=== PATIENT | male | born 1945 | race Caucasian/White ===

== ENCOUNTER 2017-10-15 06:21 | Day surgery (SDC) | payer OTHER, BC ==
[2017-10-12 18:48] VITALS: BMI 19.6
[2017-10-15] MEDS ORDERED: PROPOFOL 20 ML ONE ×3 (09:14→10:17)
[2017-10-15] MEDS ORDERED: MIDAZOLAM HCL 2 MG/2 ML SINGLE DOSE VIAL ONE (09:14)
[2017-10-15] MEDS ORDERED: SODIUM CHLORIDE 0.9% P/F 10 ML VIAL IJ ONE ×2 (09:15→10:19)
[2017-10-15] MEDS ORDERED: ceFAZolin SODIUM 1 GM VIAL ONE ×2 (09:15→10:19)
[2017-10-15] MEDS ORDERED: DEXAMETHASONE SOD PHOSPHATE 4 MG/1 ML VIAL ONE ×2 (09:15→10:39)
[2017-10-15] MEDS ORDERED: LIDOCAINE HCL/PF 2% SDV 5ML VIAL ONE (09:15)
--- NOTE | 2017-10-15 09:48 | HP ---
[facility] - Chief Complaint Chief Complaint: left thumb locking History of Present Illness: post traumatic left trigger thumb History Source: Patient Limitations to Obtaining History: No Limitations - Past Medical History Allergies/Adverse Reactions: Allergies Allergy/AdvReac Type Severity Reaction Status Date / Time No Known Drug Allergies Allergy Verified 10/12/17 18:48 - Current Medications Current Medications: Home Medications Medication Instructions Recorded Lecithin, Soy [Lecithin] 1,200 mg PO DAILY 10/12/17 Multivit-Min/FA/Lycopen/Lutein 1 each PO DAILY 10/12/17 [Centrum Silver Men Tablet] Vit B Comp/C/Folic/Iron/Vit E 1 each PO DAILY 10/12/17 [Stress-C with Iron Tablet] [facility]ellite Physical Exam - Physical Examination Vital Signs: Vital Signs Period Temp Pulse Resp BP Sys/Lord Pulse Ox Last 24 Hr 98.1 F 72 18 153/83 96 General Appearance: Well Nourished ENT: Clear Lung: Clear to auscultation Heart: Regular rate & rhythm Breasts: Soft Abdomen: Soft Extremities: No edema Satellite Impression/Plan - Impression/Plan Impression: post traumatic left trigger thumb Operative Procedure: left trigger thumb release Date to be Performed: 10/15/17
[2017-10-15] MEDS ORDERED: BUPIVACAINE HCL/PF 0.5% (5MG/ML) 10 ML VIAL ONE (10:01)
[2017-10-15] MEDS ORDERED: ceFAZolin SODIUM 1 GM VIAL IVPB ONE (10:23)
[2017-10-15] MEDS ORDERED: KETOROLAC TROMETHAMINE 30 MG/1 ML VIAL ONE (10:25)
[2017-10-15] MEDS ORDERED: BUPIVACAINE HCL/PF 0.5% (5MG/ML) 10 ML VIAL IJ ONE (10:45)
--- NOTE | 2017-10-15 10:54 | OP ---
Operative Note - Note: Operative Date: 10/15/17 Pre-Operative Diagnosis: left trigger thumb Operation: left trigger thumb release, tendon sheath excision Post-Operative Diagnosis: Same as Pre-op Surgeon: Ramirez You Anesthesiologist/SHEET FED PRINTER: Tristan Amin Anesthesia: Local, MAC Specimens Removed: tendon sheath left thumb Estimated Blood Loss (mls): 0 Drains, Volume Out (mls): 0 Blood Volume Replaced (mls): 0 Fluid Volume Replaced (mls): 500 Operative Report Dictated: Yes
[2017-10-15] MEDS ORDERED: oxyCODONE HCL 5 MG TABLET PO PRN ×2 (11:03)
--- NOTE | 2017-10-15 11:18 | SPEC ---
DATE OF OPERATION: 10/15/2017 PREOPERATIVE DIAGNOSIS: Posttraumatic left trigger thumb. POSTOPERATIVE DIAGNOSIS: Posttraumatic left trigger thumb. PROCEDURE: Left trigger thumb release and tendon sheath excision. SURGEON: Anamika Johnson MD ASSISTANTS: None. ANESTHESIOLOGIST: NUSRAT Amaya DRAINS: None. COMPLICATIONS: None. SPECIMEN: Tendon sheath, left thumb. BLOOD LOSS: None. BLOOD GIVEN: None. FLUID REPLACEMENT: 300 mL Plasmalyte. ANESTHESIA: MAC plus local injection of 10 mL of 0.50% Marcaine and 1% lidocaine mixed. This patient is a 72-year-old male with a preoperative diagnosis of a posttraumatic left trigger thumb. After understanding the potential risks, complications, alternatives, and benefits of surgery versus nonsurgical treatment, the patient elected to undergo this procedure. PROCEDURE: The patient was brought to the operating room, IV was placed, IV sedation was given. One gram of intravenous Ancef given. A tourniquet was applied to the left upper arm and the left upper extremity was prepped and draped in sterile fashion. The entire case was done under 3.8 loupe magnification. A marking pen was utilized to jordana out a longitudinal incision in an already existing skin crease at the base of the left thumb. Then 10 mL of 0.5% Marcaine mixed with 1% Lidocaine was injected in and around the incision. The left upper extremity was elevated, exsanguinated with an Esmarch bandage and the tourniquet inflated to 250 mmHg. A No. 15 scalpel blade was utilized to cut down through the skin. Subcutaneous hemostasis was achieved with the bipolar cautery. Additional dissection was done with Littler scissors until I was able to directly visualize the A1 rose sheath in its entirety. Self-retaining retractors were placed into the wound. A free air elevator was used to free up the tissue on the radial side, the ulnar side distally and proximally under better visualization of A1 rose sheath. Next, using a fresh No. 15 scalpel blade, I excised the central one-third of the A1 rose sheath and passed it off the field as specimen, tendon sheath, left thumb. I then completed the release, both distally and proximally, and brought the FDS and FDP tendons out through the wound with a Ragnell retractor. There were no abnormal points of compression. I was able to move the left thumb without the tendons bunching up at all. The area was then copiously irrigated and washed out. I then checked one more time to make sure there were no abnormal points of compression. None were seen and therefore closure was begun. One stitch using 4-0 Vicryl was used in the deep dermal layer. Skin was reapproximated with 4-0 Nylon sutures in a horizontal mattress fashion. The area was then washed and dried, covered with Xeroform gauze, sterile 4x4s, fluffs between the fingers, Webril and Coban. The tourniquet was taken down after a total tourniquet time of 16 minutes. There were no complications during the case. The patient tolerated the procedure well and was brought to the Ambulatory recovery Room in stable condition. ANAMIKA JOHNSON M.D. [id number]
[2017-10-15 11:53] VITALS: TEMP 97.8
[2017-10-15 12:13] VITALS: BP 154/87; PULSE 84
--- NOTE | 2017-10-19 12:57 | PATH ---
Surgical Pathology Report Patient Name: [facility]. Rec. #: [id number] /Age/Gender: 1945 (Age: 72) / M Account: [id number] Location: [facility] SURGICAL Taken: 10/15/2017 Received: 10/15/2017 Reported: 10/19/2017 Physicians: Ramirez You M.D. Specimen(s) Received TENDON SHEATH LEFT THUMB Clinical History Left trigger thumb Final Diagnosis TENDON SHEATH, THUMB, LEFT, TRIGGER THUMB RELEASE: BENIGN DENSE FIBROCONNECTIVE TISSUE AND FIBROADIPOSE TISSUE. Electronically Signed Glenny Castro M.D. Gross Description Received in formalin labeled "left thumb tendon sheath," is a 0.8 x 0.5 x 0.1 cm aggregate of faulkner-yellow portions of soft tissue. The specimen is submitted in toto in one cassette. /10/15/201710/15/2017
== END 2017-10-15 12:15 | disposition home or self-care (01) ==
LOC: JASU-SURG 06:21
PROVIDERS: ATTEND Orthopaedic Surgery
PROC: 0LN80ZZ Release Left Hand Tendon, Open Approach (ICD-10-PCS; principal; 2017-10-15 09:00)
DX: M65.312 Trigger thumb, left thumb (principal)
CPT/HCPCS: 88304-TC